=== PATIENT | male | born 1980 | race Caucasian/White ===

== ENCOUNTER 2021-04-28 16:28 | Emergency (ER) | payer BC ==
[2021-04-28 17:11] LABS: Protime INR 1.16
[2021-04-28 17:12] LABS: Absolute Lymphocytes (CBC) 1.6 K/uL (0.7-4.9); Basophils % 0.3 % (0-1.3); Lymphocytes % 21.3 % (15.3-44.8); MPV 8.1 fL (7.6-11.3); RBC Red Blood Cell Count 4.38 M/uL (4.33-5.43)
[2021-04-28 17:31] LABS: ALT/SGPT 24 U/L (12-78); AST/SGOT 15 U/L (15-37); Albumin 3.4 g/dL (3.4-5.0); Alkaline Phosphatase 54 U/L (45-117); BUN Blood Urea Nitrogen 14 mg/dL (7-18); Bicarbonate 30 mmol/L (21-32); Bilirubin Direct 0.3 mg/dL (0-0.2); Bilirubin Total 1.7 mg/dL (0.2-1.0); Glucose Level 113 mg/dL (74-106); Magnesium 1.9 mg/dL (1.8-2.4); NT PRO-BNP 34 pg/mL (<125); Potassium 3.8 mmol/L (3.5-5.1); Protein, Total 6.1 g/dL (6.4-8.2); Sodium Level 142 mmol/L (136-145); Troponin (Emerg Dept Use Only) < 0.02 ng/mL (0.0-0.045)
[2021-04-28] MEDS ORDERED: LIDOCAINE 1% MPF 5 ML VIAL ONE (17:40)
[2021-04-28] MEDS ORDERED: TETANUS & DIPHTHERIA TOX,ADULT 0.5 ML VIAL ONE (17:41)
--- NOTE | 2021-04-28 18:17 | RAD REPORT ---
EXAM DESCRIPTION: RAD - Chest Single View - 04/28/2021 5:04 pm CLINICAL HISTORY: PALPITATIONS COMPARISON: None TECHNIQUE: AP portable chest image was obtained 04/28/2021 5:04 pm . FINDINGS: Lungs are clear. Heart and vasculature are normal. No measurable pleural effusion and no p neumothorax. No acute bony abnormality seen. No acute aortic findings suspected. IMPRESSION: No acute cardiopulmonary process.
--- NOTE | 2021-04-28 18:30 | ER ---
Nurse's Notes [facility] Name: Dashawn See Age: 41 yrs Sex: Male : 1980 Arrival Date: 04/28/2021 Time: 16:42 Bed 27 Private MD: Diagnosis: Laceration without foreign body of knee Presentation: 04/28 16:44 Chief complaint: EMS states: Became dizzy when walking outside, fell onto his knees ss sustaining a laceration to L knee. Upon arrival, initial BP was 61/41 with HR of 48. After administration of NS, Pt has no complaints other than knee pain. Last BP en route was 124/73. Coronavirus screen: Client denies travel out of the [place] in the last 14 days. Ebola Screen: Patient denies exposure to infectious person. Patient denies travel to an Ebola-affected area in the 21 days before illness onset. Initial Sepsis Screen: Does the patient meet any 2 criteria? No. Patient's initial sepsis screen is negative. Does the patient have a suspected source of infection? No. Patient's initial sepsis screen is negative. Risk Assessment: Do you want to hurt yourself or someone else? Patient reports no desire to harm self or others. Onset of symptoms was April 28, 2021. 16:44 Method Of Arrival: EMS: [facility] 16:44 Acuity: MONIQUE 3 ss Historical: - Allergies: 16:47 No Known Allergies; ss - Home Meds: 16:47 None [Active]; ss - PMHx: 16:47 None; ss - Immunization history:: Adult Immunizations. Screenin:09 Abuse screen: Denies threats or abuse. Nutritional screening: No deficits noted. vg1 Tuberculosis screening: No symptoms or risk factors identified. Fall Risk Fall in past 12 months (25 points). No secondary diagnosis (0 pts). IV access (20 points). Ambulatory Aid- None/Bed Rest/Nurse Assist (0 pts). Gait- Normal/Bed Rest/Wheelchair (0 pts) Mental Status- Oriented to own ability (0 pts). Total Mcknight Fall Scale indicates No Risk (0-24 pts). Assessment: 17:09 General: Appears in no apparent distress. comfortable, Behavior is calm, cooperative. vg1 Pain: Complains of pain in left knee Pain currently is 4 out of 10 on a pain scale. Pain began 1 hour ago. Neuro: Level of Consciousness is awake, alert, obeys commands, Oriented to person, place, time, situation. Cardiovascular: Patient's skin is warm and dry. Respiratory: Airway is patent Respiratory effort is even, unlabored. GI: No signs and/or symptoms were reported involving the gastrointestinal system. : No signs and/or symptoms were reported regarding the genitourinary system. EENT: No signs and/or symptoms were reported regarding the EENT system. Derm: Skin Wound noted left knee. Musculoskeletal: Circulation, motion, and sensation intact. Injury Description: Laceration sustained to left knee is jagged, not bleeding. 18:48 Reassessment: Patient appears in no apparent distress at this time. Patient and/or vg1 family updated on plan of care and expected duration. Pain level reassessed. Patient is alert, oriented x 3, equal unlabored respirations, skin warm/dry/pink. Vital Signs: 16:48 BP 127 / 89; Pulse 59; Resp 15; Pulse Ox 100% on R/A; Height 6 ft. 0 in. (182.88 cm); ss Pain 3/10; 17:36 BP 129 / 90 LA Sitting (auto/reg); Pulse 68; Resp 16 S; Pulse Ox 100% on R/A; mb4 18:40 BP 123 / 76 Supine; Pulse 63; vg1 18:42 BP 122 / 79 Sitting; Pulse 64; vg1 18:44 BP 126 / 82 Standing; Pulse 62; vg1 ED Course: 16:42 Patient arrived in ED. ss 16:43 Krystle Vicente FNP-C [facility]. kb 16:43 Ruben Wiseman MD is Attending Physician. kb 16:47 Triage completed. ss 16:47 Arm band placed on right wrist. ss 16:50 Pulse ox on. NIBP on. mb4 16:55 Initial lab(s) drawn, by me, sent to lab. mb4 17:04 XRAY Chest (1 view) In Process Unspecified. EDMS 17:05 Reshma Farooq, RN is Primary Nurse. vg1 17:09 Patient has correct armband on for positive identification. Bed in low position. Call vg1 light in reach. Side rails up X2. 17:09 Maintain EMS IV. Dressing intact. Good blood return noted. Site clean \T\ dry. Gauge \T\ vg 1 site: 20 R AC. 17:15 EKG done, by ED staff, reviewed by Krystle DINERO. [facility] 18:49 No provider procedures requiring assistance completed. IV discontinued, intact, vg1 bleeding controlled, No redness/swelling at site. Pressure dressing applied. 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 Exp: vg1 01/14/2023. Lot #: [id number]. } Route: IM; Site: right deltoid; 18:50 Follow up: Response: No adverse reaction vg1 18:22 Drug: Lidocaine (1 %) 1 vials Volume: 5 ml; Route: Infiltration; vg1 18:50 Follow up: Response: No adverse reaction vg1 Outcome: 18:29 Discharge ordered by . nenita 18:49 Discharged to home ambulatory, with family. vg1 18:49 Condition: stable 18:49 Discharge instructions given to patient, Instructed on discharge instructions, follow up and referral plans. wound care, Demonstrated understanding of instructions, follow-up care, wound care. 18:49 Patient left the ED. vg1 Signatures: Dispatcher [employer] EDMS Krystle Vicente, Radha Valdez, Lucie Lopez RN [facility] Modesta [facility] Reshma Farooq, GRISELDA RN vg1
--- NOTE | 2021-04-28 18:30 | EDPHYS ---
Physician Documentation [facility] Name: Dashawn See Age: 41 yrs Sex: Male : 1980 Arrival Date: 04/28/2021 Time: 16:42 Bed 27 Private MD: ED Physician Ruben Wiseman HPI: 04/28 17:51 This 41 yrs old Male presents to ER via EMS with complaints of Near Syncope. kb 17:51 The patient has experienced near-syncope, felt dizzy. Onset: The symptoms/episode kb began/occurred just prior to arrival. Duration: This was a single episode. Context: the episode(s) was witnessed, by EMS personnel, occurred at work. Associated injury: The patient did not suffer any apparent associated injury. Associated signs and symptoms: Pertinent positives: dizziness. Current symptoms: Currently, the patient is not experiencing any symptoms, the patient feels back to baseline, no decreased level of consciousness, no confusion, no dysphasia, no headache, no paralysis. The patient has not experienced similar symptoms in the past. The patient has not recently seen a physician. Pt reports he was trying to get through a cramped area and slipped hitting knee on something causing laceration. States he felt fine, walked to the truck, then the safety building without difficulty or dizziness. States he got into the ambulance and started to feel dizzy. EMS reports hypotension initially. All symptoms resolved at this time. Pt reports he feels fine, just has soreness to left knee. Historical: - Allergies: 16:47 No Known Allergies; ss - Home Meds: 16:47 None [Active]; ss - PMHx: 16:47 None; ss - Immunization history:: Adult Immunizations. ROS: 17:45 Constitutional: Negative for fever, chills, and weight loss. kb 17:45 Skin: Positive for laceration(s), of the left knee. 17:45 Neuro: Positive for dizziness, near syncope. 17:45 All other systems are negative. Exam: 17:15 Constitutional: This is a well developed, well nourished patient who is awake, alert, kb and in no acute distress. Head/Face: Normocephalic, atraumatic. ENT: Moist Mucous membranes Cardiovascular: Regular rate and rhythm with a normal S1 and S2. No gallops, murmurs, or rubs. No pulse deficits. Respiratory: Respirations even and unlabored. No increased work of breathing, no retractions or nasal flaring. Abdomen/GI: Soft, non-tender. No distention MS/ Extremity: Pulses equal, no cyanosis. Neurovascular intact. Full, normal range of motion. Neuro: Awake and alert, GCS 15, oriented to person, place, time, and situation. Moves all extremities. Normal gait. Psych: Awake, alert, with orientation to person, place and time. Behavior, mood, and affect are within normal limits. 17:15 ECG was reviewed by the Attending Physician. 17:15 Skin: injury, laceration(s), the wound is approximately 3 cm(s), of the left knee, that can be described as clean, no foreign body, irregular, without bleeding. Vital Signs: 16:48 BP 127 / 89; Pulse 59; Resp 15; Pulse Ox 100% on R/A; Height 6 ft. 0 in. (182.88 cm); ss Pain 3/10; 17:36 BP 129 / 90 LA Sitting (auto/reg); Pulse 68; Resp 16 S; Pulse Ox 100% on R/A; mb4 18:40 BP 123 / 76 Supine; Pulse 63; vg1 18:42 BP 122 / 79 Sitting; Pulse 64; vg1 18:44 BP 126 / 82 Standing; Pulse 62; vg1 Laceration: 20:16 Wound Repair of 3cm ( 1.2in ) subcutaneous laceration to left knee. Linear shaped.. kb Distal neuro/vascular/tendon intact. Anesthesia: Wound infiltrated with 4 mls of 1% lidocaine. Wound prep: Extensive cleansing with hibiclenz, by ENP student. Skin closed with 5 4-0 Prolene using 4 simple sutures, 1 cruciate (sutures placed by ENP student). Dressed with non-adherent dressing. Patient tolerated well. MDM: 16:43 Patient medically screened. kb 17:16 Data reviewed: vital signs, nurses notes. Data interpreted: Pulse oximetry: on room air kb is 100 %. Interpretation: normal. 17:44 Counseling: I had a detailed discussion with the patient and/or guardian regarding: the kb historical points, exam findings, and any diagnostic results supporting the discharge/admit diagnosis, lab results, radiology results, the need for outpatient follow up, a family practitioner, to return to the emergency department if symptoms worsen or persist or if there are any questions or concerns that arise at home. ED course: Pt states he feels fine and is comfortable going home. . 04/28 16:44 Order name: Basic Metabolic Panel; Complete Time: 17:35 kb 04/28 16:44 Order name: CBC with Diff; Complete Time: 17:15 kb 04/28 16:44 Order name: LFT's; Complete Time: 17:35 kb 04/28 16:44 Order name: Magnesium; Complete Time: 17:35 kb 04/28 16:44 Order name: NT PRO-BNP; Complete Time: 17:35 kb 04/28 16:44 Order name: PT-INR; Complete Time: 17:15 kb 04/28 16:44 Order name: Troponin (emerg Dept Use Only); Complete Time: 17:35 kb 04/28 16:44 Order name: XRAY Chest (1 view); Complete Time: 18:29 kb 04/28 16:44 Order name: EKG; Complete Time: 16:45 kb 04/28 16:44 Order name: Cardiac monitoring; Complete Time: 17:01 kb 04/28 16:44 Order name: EKG - Nurse/Tech; Complete Time: 17:00 kb 04/28 17:15 Order name: CPK; Complete Time: 17:35 kb 04/28 16:44 Order name: IV Saline Lock; Complete Time: 17:08 kb 04/28 16:44 Order name: Labs collected and sent; Complete Time: 17:08 kb 04/28 16:44 Order name: O2 Per Protocol; Complete Time: 17:08 kb 04/28 16:44 Order name: O2 Sat Monitoring; Complete Time: 17:08 kb 04/28 17:08 Order name: Dressing - Wound; Complete Time: 17:51 kb 04/28 17:08 Order name: Gloves, Sterile; Complete Time: 17:51 kb 04/28 17:08 Order name: Prolene, Sutures; Complete Time: 17:51 kb 04/28 17:08 Order name: Setup Suture Tray; Complete Time: 17:51 kb EC:15 Rate is 61 beats/min. Rhythm is regular. QRS [place] is Normal. MO interval is normal at kb 182 msec. QRS interval is normal at 104 msec. QT interval is normal at 410 msec. Administered Medications: 17:26 Drug: Tetanus-Diphtheria Toxoid Adult 0.5 ml {Dinkey Engine Firer: [employer]. Exp: vg1 01/14/2023. Lot #: [id number]. } Route: IM; Site: right deltoid; 18:50 Follow up: Response: No adverse reaction vg1 18:22 Drug: Lidocaine (1 %) 1 vials Volume: 5 ml; Route: Infiltration; vg1 18:50 Follow up: Response: No adverse reaction vg1 Disposition: 04/29 08:43 Co-signature as Attending Physician, Ruben Wiseman MD I agree with the assessment and kdr plan of care. Disposition Summary: 04/28/21 18:29 Discharge Ordered Location: Home kb Condition: Stable kb Diagnosis - Laceration without foreign body of knee kb Followup: kb - With: Emergency Department - When: As needed - Reason: Worsening of condition Followup: kb - With: Private Physician - When: 2 - 3 days - Reason: Recheck today's complaints, Continuance of care, Re-evaluation by your physician Discharge Instructions: - Discharge Summary Sheet kb - Near-Syncope, [id number] kb - Laceration Care, Adult, [id number] kb Forms: - Medication Reconciliation Form kb - Thank You Letter kb - Antibiotic Education kb - Prescription Opioid Use kb Signatures: Dispatcher [employer] EDKrystle Evans, ONLINE MARKETING ANALYST-C ONLINE MARKETING ANALYST-Ruben Ross MD MD [facility] Radha Patrick, Reshma Hernandez RN, RN RN vg1
[2021-04-28 18:58] VITALS: O2SAT 100
[2021-04-28 19:04] VITALS: BP 126/82
--- NOTE | 2021-04-30 06:22 | EKG ---
Test Date: 2021-04-28 Test Time: 17:12:11 Artificial Teeth Inspector: LINDA MEASUREMENT RESULTS: Intervals: Rate: 61 NH: 182 QRSD: 104 QT: 410 QTc: 412 [place]: P: 71 NH: 182 QRS: 74 T: 54 INTERPRETIVE STATEMENTS: Normal sinus rhythm Normal ECG No previous ECG available for comparison Electronically Signed On 04-30-21 06:18:13 CDT by Ramon York
== END 2021-04-28 18:49 | disposition home or self-care (01) ==
LOC: ER 16:28
PROC: 0JQP0ZZ Repair Left Lower Leg Subcutaneous Tissue and Fascia, Open Approach (ICD-10-PCS; principal; 2021-04-28)
DX: S81.012A Laceration without foreign body, left knee, initial encounter (principal); W01.198A Fall on same level from slipping, tripping and stumbling with subsequent striking against other object, initial encounter; Y92.89 Other specified places as the place of occurrence of the external cause; Y99.8 Other external cause status; Z23 Encounter for immunization
CPT/HCPCS: 36415; 71045; 80048; 80076; 82550; 83735; 83880; 84484; 85025; 85610; 90471; 90714; 93005; 99284